=== PATIENT | male | born 2000 | race Two or more races ===

== ENCOUNTER 2022-07-08 21:39 | Emergency (ER) | payer OTHER ==
[~2022-07-08] VITALS: Ht 170.2 cm; Wt 52.8 kg
[2022-07-08 22:00] VITALS: BP 121/76
[2022-07-08] MEDS ORDERED: BACITRACIN TOP OINT 1 UD PKG TOP ONE (22:15)
[2022-07-08] MEDS ORDERED: ceFAZolin 1GM/50ML 50 ML IV ONE (22:45)
[2022-07-08] MEDS ORDERED: BACDST PO (23:46)
[2022-07-08] MEDS ORDERED: CEPH-510 PO (23:46)
== END 2022-07-09 00:27 | disposition home or self-care (01) ==
LOC: ER 21:39
DX: S60.222A Contusion of left hand, initial encounter (principal); L03.114 Cellulitis of left upper limb; W01.0XXA Fall on same level from slipping, tripping and stumbling without subsequent striking against object, initial encounter; Y93.89 Activity, other specified; Y92.89 Other specified places as the place of occurrence of the external cause; Y99.8 Other external cause status
CPT/HCPCS: 73130; 96365; 99284; J0690